=== PATIENT | male | born 2000 | race Native Hawaiian/Other Pacific Islander ===

== ENCOUNTER 2021-04-03 17:55 | Emergency (ER) | payer OTHER ==
[~2021-04-03] VITALS: Ht 182.9 cm; Wt 79.3 kg
--- NOTE | 2021-04-03 18:19 | REP ---
INDICATION: trauma. COMPARISON: None. TECHNIQUE: Four views of the right small finger. FINDINGS: Four views of the right small finger demonstrate a volar plate avulsion chip fracture from the base of the middle phalanx at the PIP joint. This is seen to best advantage on the lateral and oblique radiographs. There is associated soft tissue swelling. On the oblique image the fracture fragment appears corticated question old avulsion fracture. No opaque foreign body noted. IMPRESSION: Volar plate avulsion chip fracture at the base of the middle phalanx of the 5th PIP joint, age indeterminate. There is associated soft tissue swelling. <Electronically signed by Juanpablo Belle > 04/03/21 [id number]
[2021-04-03 21:00] VITALS: BP 112/56
== END 2021-04-03 21:02 | disposition home or self-care (01) ==
LOC: M ED 17:55
DX: S63.656A Sprain of metacarpophalangeal joint of right little finger, initial encounter (principal); X58.XXXA Exposure to other specified factors, initial encounter; Y92.59 Other trade areas as the place of occurrence of the external cause; Y93.89 Activity, other specified; Y99.0 Civilian activity done for income or pay; Z72.0 Tobacco use